=== PATIENT | male | born 1965 | race Caucasian/White ===

== ENCOUNTER 2018-12-12 21:21 | Emergency (ER) | payer OTHER ==
[~2018-12-12] VITALS: Ht 172.7 cm; Wt 98.4 kg
[2018-12-12 21:24] VITALS: Ht 172.7 cm; Wt 98.4 kg
[2018-12-13] VITALS: BP 120/70
== END 2018-12-13 00:16 | disposition home or self-care (01) ==
LOC: ED 21:21
DX: S60.221A Contusion of right hand, initial encounter (principal); Z90.89 Acquired absence of other organs; W23.0XXA Caught, crushed, jammed, or pinched between moving objects, initial encounter; Y93.89 Activity, other specified; Y92.89 Other specified places as the place of occurrence of the external cause; Y99.8 Other external cause status
CPT/HCPCS: A4570; J1885; Q0092